=== PATIENT | male | born 1960 | race Caucasian/White ===

== ENCOUNTER 2016-12-01 06:50 | Emergency (ER) | payer BC ==
[2016-12-01 07:33] VITALS: BP 143/87; PULSE 81; RESP 18; TEMP 97.7
--- NOTE | 2016-12-01 08:36 | ED ---
General Adult HPI - General Chief complaint: Dental/Oral Stated complaint: Dental Pain Time Seen by Provider: 12/01/16 08:17 Source: patient, RN notes reviewed Mode of arrival: ambulatory Limitations: no limitations - History of Present Illness Initial comments: 56-year-old male who presents emergency room today with a chief complaint of a rash on the left side of the face. States to a having a prickly feeling. States somewhat painful. States scabbed over towards the left lip and also has some spots inside the mouth. Patient denies any other complaints or symptoms. He states it started 4 days ago. Patient denies any recent fever, chills, shortness of breath, chest pain, back pain, abdominal pain, nausea or vomiting, numbness or tingling, dysuria or hematuria, constipation or diarrhea, headaches or visual changes, or any other complaints. - Related Data Home Medications Medication Instructions Recorded Confirmed Aspirin EC [Ecotrin Low Dose] 81 mg PO DAILY 12/01/16 12/01/16 Omeprazole 20 mg PO DAILY 12/01/16 12/01/16 Simvastatin [Zocor] 20 mg PO HS 12/01/16 12/01/16 Previous Rx's Medication Instructions Recorded predniSONE 60 mg PO DAILY 5 Days 12/01/16 valACYclovir HCL [Valtrex] 1,000 mg PO Q8HR 7 Days 12/01/16 Allergies Allergy/AdvReac Type Severity Reaction Status Date / Time codeine AdvReac Nausea Verified 12/01/16 07:33 Review of Systems ROS Statement: Those systems with pertinent positive or pertinent negative responses have been documented in the HPI. ROS Other: All systems not noted in ROS Statement are negative. Past Medical History Past Medical History: Hyperlipidemia History of Any Multi-Drug Resistant Organisms: None Reported Past Surgical History: Back Surgery Past Psychological History: No Psychological Hx Reported Smoking Status: Never smoker Past Alcohol Use History: Occasional Past Drug Use History: None Reported General Exam - General Exam Comments Initial Comments: General: The patient is awake and alert, in no distress, and does not appear acutely ill. Eye: Pupils are equal, round and reactive to light, extra-ocular movements are intact. No nystagmus. There is normal conjunctiva bilaterally. No signs of icterus. Ears, nose, mouth and throat: There are moist mucous membranes and no oral lesions. Neck: The neck is supple, there is no tenderness or JVD. Cardiovascular: There is a regular rate and rhythm. No murmur, rub or gallop is appreciated. Respiratory: Lungs are clear to auscultation, respirations are non-labored, breath sounds are equal. No wheezes, stridor, rales, or rhonchi. Musculoskeletal: Normal ROM, no tenderness. Strength 5/5. Sensation intact. Pulses equal bilaterally 2+. Neurological: A&O x 3. CN II-XII intact, There are no obvious motor or sensory deficits. Coordination appears grossly intact. Speech is normal. Skin: Patient does have rash left side of face. 2 red spots in the left cheondoism. One scabbed over area next to left side of the lower lip consistent with herpes zoster. Psychiatric: Cooperative, appropriate mood & affect, normal judgment. Limitations: no limitations Course Vital Signs 12/01/16 07:24 Temperature 97.7 F Pulse Rate 81 Respiratory 18 Rate Blood Pressure 143/87 O2 Sat by Pulse 98 Oximetry Medical Decision Making - Medical Decision Making Patient's findings consistent just below one side of the face. Rash appears to be consistent with herpes zoster. Disposition Clinical Impression: Herpes zoster Disposition: HOME SELF-CARE Condition: Good Instructions: Shingles (ED) Additional Instructions: Please use medication as discussed. Please follow-up with family doctor in the next 2 days of symptoms have not improved. Please return to emergency room if the symptoms increase or worsen or for any other concerns. Prescriptions: predniSONE 60 mg PO DAILY 5 Days valACYclovir HCL [Valtrex] 1,000 mg PO Q8HR 7 Days Referrals: Tod Stoll MD [Primary Care Provider] - 1-2 days Time of Disposition: 08:33
== END 2016-12-01 09:01 | disposition home or self-care (01) ==
LOC: EC 06:50
DX: B02.9 Zoster without complications (principal); E78.5 Hyperlipidemia, unspecified; Z88.5 Allergy status to narcotic agent; Z79.82 Long term (current) use of aspirin; Z79.899 Other long term (current) drug therapy
CPT/HCPCS: 99282